=== PATIENT | male | born 1980 | race African-American/Black ===

== ENCOUNTER 2024-03-24 22:20 | Emergency (ER) | payer SELFPAY ==
[~2024-03-24] VITALS: Ht 180.3 cm; Wt 132.0 kg
[2024-03-24 22:24] VITALS: BP 121/85; PULSE 92; RESP 16; TEMP 99; O2SAT 100
== END 2024-03-25 01:30 | disposition left against medical advice (07) ==
LOC: ER 22:20
DX: S60.512A Abrasion of left hand, initial encounter (principal); S90.512A Abrasion, left ankle, initial encounter; Z53.21 Procedure and treatment not carried out due to patient leaving prior to being seen by health care provider; X58.XXXA Exposure to other specified factors, initial encounter; Y93.89 Activity, other specified; Y92.89 Other specified places as the place of occurrence of the external cause; Y99.8 Other external cause status